=== PATIENT | male | born 1960 | race African-American/Black ===

== ENCOUNTER 2020-10-20 08:24 | Emergency (ER) | payer MEDICARE, MEDICAID ==
[~2020-10-20] VITALS: Ht 180.3 cm; Wt 82.0 kg
[~2020-10-20 08:24] MED LIST changes: -LOPE2TAB27 PO
[2020-10-20 08:29] VITALS: BP 121/72
[2020-10-20] MEDS ORDERED: LOPE2TAB27 PO (09:14)
--- NOTE | 2020-10-20 09:14 | PHYS DOC ---
Past History Past Medical History: High Cholesterol, HIV, Hypertension, Other Past Surgical History: Hip Replacement, Knee Replacement, Other Smoking: Non-smoker Alcohol Use: Occasionally Drug Use: None Adult General Chief Complaint Chief Complaint: DIARRHEA HPI HPI Patient is a 59-year-old male presenting for diarrhea. Onset was yesterday. Reports he has had dental issues and received a prescription for amoxicillin 3 days ago from his primary care physician and has been taking daily ever since. Reports yesterday without any known onset, exposure concerning p.o. ingestion development of looser stools than usual. Reports vague cramping in his general abdominal region and x2 subsequent episodes of more watery diarrhea this morning concerning him prompting him to come in for evaluation. Of note, patient does have history of HIV, states he is compliant with all antiretrovirals and is undetectable at this time. All management has been provided by primary care physician. No fever, recent sick contacts, recent travel, dizziness, chest pain, shortness of breath, dysuria, hematochezia or other concerning symptoms Review of Systems Review of Systems Fourteen body systems of review of systems have been reviewed. See HPI for pertinent positives and negative responses, other acosta all other systems are negative, non-pertinent or non-contributory Allergies Allergies Allergies Coded Allergies Type Severity Reaction Last Updated Verified No Known Drug Allergies 08/09/13 No Physical Exam Physical Exam Constitutional: Well developed, well nourished, no acute distress, non-toxic appearance. HENT: Normocephalic, atraumatic, bilateral external ears normal, oropharynx moist, no oral exudates, nose normal. Eyes: PERRLA, EOMI, conjunctiva normal, no discharge. Neck: Normal range of motion, no tenderness, supple, no stridor. Cardiovascular: Heart rate regular, sinus rhythm, no murmurs rubs or gallops Lungs & Thorax: Bilateral breath sounds clear to auscultation Abdomen: Bowel sounds normal, soft, generalized tenderness with palpation without guarding or rebound, no masses, no pulsatile masses. Nonsurgical abdomen, no peritoneal signs Skin: Warm, dry, no erythema, no rash. Back: No tenderness, no CVA tenderness. Extremities: No tenderness, no cyanosis, no clubbing, ROM intact, no edema. Neurologic: Alert and oriented X 3, grossly normal motor & sensory function, no focal deficits noted. Psychologic: Affect normal, judgement normal, mood normal. Current Patient Data Vital Signs Vital Signs Date Time Temp Pulse Resp B/P (MAP) Pulse Ox O2 Delivery O2 Flow Rate FiO2 10/20/20 08:29 97.2 80 16 121/72 (88) 100 Room Air EKG EKG [] Radiology/Procedures Radiology/Procedures [] Heart Score C/O Chest Pain: No Risk Factors: Risk Factors: DM, Current or recent (<one month) smoker, HTN, HLP, family history of CAD, obesity. Risk Scores: Risk Factors: DM, Current or recent (<one month) smoker, HTN, HLP, family history of CAD, obesity. Course & Med Decision Making Course & Med Decision Making ABCs unremarkable. I disclosed entirety of ER findings and discussed most likely diagnosis of diarrhea. Patient concerned about recent amoxicillin use, I advised likelihood of this causing diarrhea so soon is a potential, I advised him to take probiotics. I disclosed potential for C. difficile; however, this is unlikely given only taking this medication for x2 days without any other known exposures. Also discussed HIV status that exposes him to other risks, no systemic symptoms such as fever in fact that he has only had x6-7 total episodes of looser stool, joint decision made to defer any type of stool testing or other further diagnostic work-up in ER setting. As such, I stressed need for close outpatient follow-up to review today's ER visit given that he has good access to primary care physician and can be seen by the end of the week which I feel is appropriate. Strict return precautions were also discussed at length with good understanding by patient. Patient voiced understanding and agreement with the plan. Patient knows to come back for repeat evaluation if concerning signs or symptoms present prior to outpatient follow-up. Hemodynamically stable, ambulatory and well-appearing at time of disposition. Dragon Disclaimer Dragon Disclaimer This electronic medical record was generated, in whole or in part, using a voice recognition dictation system. Departure Departure: Impression: Primary Impression: Diarrhea Disposition: HOME / SELF CARE / HOMELESS Condition: STABLE Referrals: TRAY HOUSTON MD (PCP) Patient Instructions: Diarrhea, Diarrhea, [id number] Additional Instructions: You were seen in the ED for evaluation of diarrhea. While the cause of the diarrhea is not known, it is most likely viral in nature and typically will resolve with time. It will be important to monitor your fluid intake to avoid dehydration and other symptoms closely as if your symptoms to not improve in the next few days, you will likely need further testing and more aggressive management. As disclosed, there is no acute indication for medication changes or further diagnostic work-up in ER setting but this might be true if symptoms persist given your underlying comorbidities. Please return to the ED if you have new or worrisome symptoms. Scripts Loperamide Hcl (LOPERAMIDE) 2 Mg Tablet 2 MG PO Q4-6HRS PRN for DIARRHEA, #30 TAB Prov: FÉLIX CEDENO DO 10/20/20 FÉLIX CEDENO DO Oct 20, 2020 09:14
[2020-10-20] MEDS ORDERED: LOPERAMIDE 2 MG CAPSULE PO ONE (09:15)
== END 2020-10-20 09:23 | disposition home or self-care (01) ==
LOC: ER 08:24
DX: R19.7 Diarrhea, unspecified (principal); E78.5 Hyperlipidemia, unspecified; I10 Essential (primary) hypertension
CPT/HCPCS: 99282

== ENCOUNTER → 2020-10-20 | Outpatient (CLI) | payer MEDICARE, MEDICAID ==
[~2020-10-20] MED LIST: AMLO-186 PO; DARU800T2 PO; EMTR1TAB8 PO; GABA600T7 PO; HYDR-2769 PO; LOPE2TAB27 PO; NIAC1000 PO; PRAV20TA2 PO; RALT400T PO; RITO100T PO
[2020-10-20 08:29] VITALS: BP 121/72
== END ==
LOC: LAB 12:51
PROVIDERS: ATTEND Internal Medicine
DX: R19.7 Diarrhea, unspecified (principal)
CPT/HCPCS: 87493

== ENCOUNTER → 2021-07-13 | Outpatient (CLI) | payer MEDICARE, MEDICAID ==
[~2021-07-13] MED LIST changes: +LOPE2TAB27 PO
[2021-07-13 11:40] LABS: BASO % 1 % (0-3); EOS # 0.3 x10^3/uL (0.0-0.7); EOS % 4 % (0-3); HEMATOCRIT 44.5 % (39.0-53.0); HEMOGLOBIN 14.4 g/dL (13.0-17.5); LYMPH # 3.9 x10^3/uL (1.0-4.8); LYMPH % 50 % (24-48); MEAN CORPUSCULAR HEMOGLOBIN 29 pg (25-35); MEAN CORPUSCULAR HGB CONC 32 g/dL (31-37); MEAN CORPUSCULAR VOLUME 88 fL (79-100); MONO % 13 % (0-9); NEUT # 2.5 x10^3uL (1.8-7.7); NEUT % 32 % (31-73); PLATELET COUNT 242 x10^3/uL (140-400); RED BLOOD COUNT 5.04 x10^6/uL (4.30-5.70); WHITE BLOOD COUNT 7.8 x10^3/uL (4.0-11.0)
[2021-07-13 11:49] LABS: ALBUMIN 3.3 g/dL (3.4-5.0); ALBUMIN/GLOBULIN RATIO 0.8 (1.0-1.7); CREATININE 1.2 mg/dL (0.7-1.3); POTASSIUM 4.1 mmol/L (3.5-5.1); TOTAL BILIRUBIN 0.4 mg/dL (0.2-1.0); TOTAL PROTEIN 7.2 g/dL (6.4-8.2)
[2021-07-14 19:44] LABS: CHOLESTEROL/HDL RATIO 2.7
== END ==
LOC: LAB 09:45
PROVIDERS: ATTEND Internal Medicine Infectious Disease
DX: Z00.00 Encounter for general adult medical examination without abnormal findings (principal); B20 Human immunodeficiency virus [HIV] disease; E78.5 Hyperlipidemia, unspecified
CPT/HCPCS: 80053; 80061; 85025